=== PATIENT | male | born 1995 | race American Indian/Alaskan Native ===

== ENCOUNTER 2018-05-24 04:23 | Emergency (ER) | payer SELFPAY ==
[2018-05-24] MEDS ORDERED: MOTRIN ONE (06:30)
[2018-05-24 06:32] VITALS: BP 112/85
[2018-05-24] MEDS ORDERED: MOTRIN PO ONE (06:33)
--- NOTE | 2018-05-24 09:13 | Emergency Department Report ---
HPI - General Chief Complaint: Dental/Oral Time Seen by Provider: 05/24/18 08:49 - HPI HPI: 22 yo AA M presents to the ED with the complaint of a 2 week history of upper left jaw and toothache and some swelling. The patient says that he has an appointment with a dentist coming up on Friday, in 3 days. He says that overall his teeth have been bothering him for the past year. Otherwise he denies any past medical history. He is a tobacco smoker. He has not taken anything for his symptoms prior to presentation. No fever, difficulty swallowing, swelling of the neck. No recent travel or sick contacts at home. ED Past Medical Hx - Past Medical History Previous Medical History?: No - Surgical History Past Surgical History?: No - Social History Smoking Status: Never Smoker Substance Use Type: Marijuana - Medications Home Medications: Home Medications Medication Instructions Recorded Confirmed Last Taken Type Ibuprofen 800 mg PO TID #20 tablet 05/24/18 Unknown Rx Penicillin Vk [Veetids TAB] 250 mg PO QID #28 tablet 05/24/18 Unknown Rx ED Review of Systems ROS: Stated complaint: TOOTHACHE Other details as noted in HPI Comment: All other systems reviewed and negative Constitutional: denies: chills, fever Eyes: denies: eye pain, eye discharge, vision change ENT: dental pain. denies: ear pain, throat pain Respiratory: denies: cough, shortness of breath Cardiovascular: denies: chest pain, edema Gastrointestinal: denies: abdominal pain, vomiting Genitourinary: denies: urgency, dysuria Musculoskeletal: denies: back pain, joint swelling Skin: denies: rash, change in color Neurological: denies: headache, numbness Physical Exam - Physical Exam Vital Signs: Vital Signs 05/24/18 06:29 Temperature 99.1 F Pulse Rate 63 Respiratory 16 Rate Blood Pressure 112/85 O2 Sat by Pulse 100 Oximetry Physical Exam: GENERAL: The patient is well-developed well-nourished. HENT: Normocephalic. Atraumatic. Patient has moist mucous membranes. Oropharynx is clear without tonsillar hypertrophy, erythema or exudates. No drooling or trismus. There is some tenderness to palpation along the tooth and gumline of the left upper jaw around the canine and premolar. There was no significant abscess seen or palpated but possibly something the size of a pustule. EYES: Extraocular motions are intact. NECK: Supple. Trachea is midline. No obvious lymphadenopathy visible or palpable. CHEST/LUNGS: Clear to auscultation. There is no respiratory distress noted. HEART/CARDIOVASCULAR: Regular. There is no tachycardia. There is no murmur. ABDOMEN: There is no abdominal distention. SKIN: Skin is warm and dry. NEURO: The patient is awake, alert, and oriented. The patient is cooperative. The patient has no focal neurologic deficits. The patient has normal speech and gait. MUSCULOSKELETAL: There is no tenderness or deformity. There is no limitation range of motion. There is no evidence of acute injury. ED Course Vital Signs 05/24/18 06:29 Temperature 99.1 F Pulse Rate 63 Respiratory 16 Rate Blood Pressure 112/85 O2 Sat by Pulse 100 Oximetry ED Medical Decision Making - Medical Decision Making Patient's vital signs are stable throughout the ED course including being afebrile. The patient says he got some relief from the ibuprofen given earlier this morning. Patient has a toothache to the left upper jaw around the canine and premolar. There might be a very small pustule seen but no obvious sizable abscess appropriate for any incision and drainage. There is no drooling or trismus or any significant lymphadenopathy. No signs of any ludwigs angina. The patient says he has an appointment with a dentist on Friday, in 3 days. He appears in for discharge home at this time. He has been given anti- inflammatories and antibiotics. He will return to the ER with any worsening of symptoms or any acute distress. - Differential Diagnosis toothache, dental abscess, TMJ, cellulitis Critical Care Time: No Critical care attestation.: If time is entered above; I have spent that time in minutes in the direct care of this critically ill patient, excluding procedure time. ED Disposition Clinical Impression: Toothache, Jaw pain, Dental abscess Disposition: TO HOME OR SELFCARE Is pt being admited?: No Condition: Stable Instructions: Dental Abscess (ED), Toothache (ED) Additional Instructions: You can use a warm, but not hot, compress to the face or along the gumline to try and express some infection but I do not see any obvious large abscess at this time for an incision and drainage. I'm starting you on antibiotics, take them as prescribed, and do not mix with alcohol. Follow-up with your dentist on Friday as previously scheduled. Return to the emergency Department with any worsening of your symptoms, difficulty with swallowing, swelling of the neck , development of fever, or with any acute distress. Try and quit smoking. Prescriptions: Ibuprofen 800 mg PO TID #20 tablet Penicillin Vk [Veetids TAB] 250 mg PO QID #28 tablet Referrals: PRIMARY CARE, [Primary Care Provider] - 3-5 Days [facility] [Outside] - 3-5 Days
== END 2018-05-24 09:18 | disposition home or self-care (01) ==
LOC: ED 04:23
DX: K08.89 Other specified disorders of teeth and supporting structures (principal); R68.84 Jaw pain; K04.7 Periapical abscess without sinus; F12.10 Cannabis abuse, uncomplicated
CPT/HCPCS: 99282